=== PATIENT | male | born 1940 ===

== ENCOUNTER 2019-05-07 22:40 | Inpatient (IN) | payer MEDICARE, OTHER ==
[~2019-05-07] VITALS: Ht 188 cm; Wt 83.9 kg
[2019-05-07] MEDS ORDERED: ZOLPIDEM TARTRATE 5 MG TABLET PO PRN (23:30)
[2019-05-07] MEDS ORDERED: MAG HYDROX/AL HYDROX/SIMETH 30 ML UDC PO PRN (23:30)
[2019-05-07] MEDS ORDERED: MAGNESIUM HYDROXIDE 30 ML UDC PO PRN (23:30)
[2019-05-07] MEDS ORDERED: BLOOD SUGAR DIAGNOSTIC 1 EACH STRIP IN ONE (23:45)
[2019-05-07] MEDS ORDERED: PANT40TA2 PO (23:48)
[2019-05-07] MEDS ORDERED: TRAZ-182 PO (23:49)
[2019-05-07] MEDS ORDERED: MIRT15TA7 PO (23:49)
[2019-05-07] MEDS ORDERED: CITA20TA16 PO (23:50)
[2019-05-07] MEDS ORDERED: CLON0.2T PO (23:51)
[2019-05-07] MEDS ORDERED: ZOLP10TA2 PO (23:52)
[2019-05-07] MEDS ORDERED: LINA145C PO (23:52)
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
[2019-05-07] MEDS ORDERED: AMLO5TAB9 PO (23:53)
[2019-05-07] MEDS ORDERED: HYDR-4077 PO (23:54)
[2019-05-07] MEDS ORDERED: GLIP5TAB13 PO (23:54)
[2019-05-08] MEDS ORDERED: hydrALAZINE HCL 50 MG TABLET PO ONE (01:00)
--- NOTE | 2019-05-08 02:00 | NUR ---
GPS RN NOTES: PT STATED " I CANT SLEEP. I WANT A SLEEPING PILL." OFFERED AMBIEN 5MG PO PRN ORDERED. ADMINISTERED MEDICATION. PT TOLERATED MEDICATION WELL. CONTINUE TO MONITOR.
[2019-05-08 02:10] VITALS: BP 151/71
[2019-05-08 07:05] LABS: BASOPHILS % (AUTO) 0.9 % (0.0-2.0); EOSINOPHILS % (AUTO) 3.5 % (0.0-6.0); HEMATOCRIT 33 % (39-51); HEMOGLOBIN 10.5 g/dL (13.5-17.5); LYMPHOCYTES # (AUTO) 1.8 /CMM (0.8-4.8); LYMPHOCYTES % (AUTO) 32.5 % (20.0-44.0); MEAN CORPUSCULAR HGB CONC 32 g/dl (31.0-36.0); MEAN CORPUSCULAR VOLUME 74 fL (80-96); MONOCYTES # (AUTO) 0.5 /CMM (0.1-1.30); NEUTROPHILS # (AUTO) 2.9 /CMM (1.8-8.9); NEUTROPHILS % (AUTO) 53.1 % (43.0-81.0); PLATELET COUNT (AUTO) 209 /CMM (150-450); RED BLOOD CELL COUNT(AUTO) 4.51 MIL/uL (4.5-6.0); WHITE BLOOD COUNT (AUTO) 5.4 K/uL (4.3-11.0)
[2019-05-08 08:00] VITALS: BP 165/85
[2019-05-08 08:00] LABS: CALCIUM, SERUM 9.1 mg/dL (8.5-10.1); CARBON DIOXIDE 21 mmol/L (21-32); CHLORIDE 105 mmol/L (98-107); CREATININE 1.9 mg/dL (0.6-1.3); GLUCOSE 106 mg/dL (74-106); POTASSIUM 3.8 mmol/L (3.5-5.1); SODIUM SERUM 139 mmol/L (136-145); UREA NITROGEN, BLOOD 31 mg/dL (7-18)
[2019-05-08 08:13] LABS: CHOLESTEROL 167 mg/dL (<200); HDL CHOLESTEROL 34 mg/dL (40-60); LDL 97 mg/dL (0-99); TRIGLYCERIDES 177 mg/dL (30-150)
[2019-05-08 08:45] LABS: EOSINOPHILS % (MANUAL) 3 % (0-4); LYMPHOCYTES % (MANUAL) 42 % (16-48); MONOCYTES % (MANUAL) 8 % (0-11.0); NEUTROPHILS % (MANUAL) 47 (42-76)
[2019-05-08] MEDS ORDERED: CLONIDINE HCL 0.2 MG TABLET PO SCH (09:00)
[2019-05-08] MEDS ORDERED: Linaclotide (Linzess) 145 MCG PO SCH (09:00)
[2019-05-08] MEDS: PANTOPRAZOLE 40 MG TABLET.DR PO SCH (09:42)
[2019-05-08] MEDS: AMLODIPINE BESYLATE 5 MG TABLET PO SCH ×2 (09:42→16:19)
[2019-05-08] MEDS: hydrALAZINE HCL 50 MG TABLET PO SCH ×2 (09:42→16:19)
[2019-05-08] MEDS: glipiZIDE 5 MG TABLET PO SCH (09:43)
[2019-05-08] MEDS: CLONIDINE HCL 0.1 MG TABLET PO SCH ×2 (09:43→16:19)
--- NOTE | 2019-05-08 10:33 | NUR ---
Call to [facility]. No answer. Unable to leave message as voicemail not set up. Request was pending from pharmacy for linzess tablet for patient daily medication. Oumar Lou RN
--- NOTE | 2019-05-08 12:55 | NUR ---
CALLED AND LEFT A MESSAGE TO DR. PELAEZ FOR THE CONSULT.
[2019-05-08] MEDS ORDERED: DEXTROSE 50%-WATER 50 ML DISP.SYRIN IV PRN (14:30)
[2019-05-08 15:28] LABS: IRON, SERUM 34 ug/dl (50-175); TOTAL IRON BINDING CAPACITY 322 ug/dl (250-450)
[2019-05-08 16:00] VITALS: BP 117/65
[2019-05-08] MEDS: BLOOD SUGAR DIAGNOSTIC 1 EACH STRIP IN SCH ×2 (16:37→22:07)
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
[2019-05-08] MEDS: LORAZEPAM 1 MG TABLET PO PRN (19:49)
--- NOTE | 2019-05-08 19:49 | NUR ---
GPS/RN NOTE: PATIENT IS LABILE, ANXIOUS, REQUESTING FOR SLEEPING PILL AT THIS TIME, SAID THAT HE TAKES SLEEPING PILL EARLY AT NIGHT. ATIVAN 1 MG TAB PO GIVEN
[2019-05-08 20:16] VITALS: BP 121/76
[2019-05-08] MEDS: QUETIAPINE FUMARATE 25 MG TABLET PO SCH (21:33)
--- NOTE | 2019-05-08 22:07 | NUR ---
GPS/RN NOTE: ACCUCHECK 101 MG/DL, MILK 240 ML GIVEN PER REQUEST A SNACK
--- NOTE | 2019-05-09 07:09 | NUR ---
GPS/RN NOTE: SLEPT WELL, NO ACUTE DISTRESS NOTED.CALM AND QUIET THIS MORNING. DENIES ANY PAIN. WILL CONTINUE TO MONITOR TO MAINTAIN SAFETY.
[2019-05-09] MEDS: BLOOD SUGAR DIAGNOSTIC 1 EACH STRIP IN SCH ×4 (07:50→21:56)
[2019-05-09 08:00] VITALS: BP 142/88
[2019-05-09] MEDS: PANTOPRAZOLE 40 MG TABLET.DR PO SCH (09:03)
[2019-05-09] MEDS: glipiZIDE 5 MG TABLET PO SCH (09:03)
[2019-05-09] MEDS: CITALOPRAM HYDROBROMIDE 20 MG TABLET PO SCH (09:03)
[2019-05-09] MEDS: AMLODIPINE BESYLATE 5 MG TABLET PO SCH ×2 (09:03→16:53)
[2019-05-09] MEDS: CLONIDINE HCL 0.1 MG TABLET PO SCH ×2 (09:03→16:53)
[2019-05-09] MEDS: hydrALAZINE HCL 50 MG TABLET PO SCH ×2 (09:04→16:53)
--- NOTE | 2019-05-09 09:25 | NUR ---
Call to Granddaughter regarding Linzess prescription for pharmacy to verify and dose through patient's own medication. Phone rings until it answers and hangs up. Oumar Lou RN
--- NOTE | 2019-05-09 13:29 | NUR ---
Patient given assist with shaving. Performs his own perineal care. Assist with change of linen. Patient notes he wishes he was . Says, "everyone here seems to think its funny and does not believe in God. I believe in God because I am old. You will see. This place is torture." Patient had one incontinent espisode. Given a diaper, new gown, and will offer frequent toilet breaks. Oumar Lou RN
[2019-05-09 16:00] VITALS: BP 143/81
--- NOTE | 2019-05-09 18:14 | NUR ---
Patient maintains feeling extremely depressed per his report. Eats his ensure and juice with milk each meal. Says that is all he needs. Encouragement to patient to come to day room. Patient refuses group therapy at this time. Will endorse to night [facility]. Oumar Lou RN
[2019-05-09 20:11] VITALS: BP 119/59
[2019-05-09] MEDS: QUETIAPINE FUMARATE 25 MG TABLET PO SCH (21:56)
[2019-05-09] MEDS: LORAZEPAM 1 MG TABLET PO PRN (23:31)
[2019-05-10] MEDS: BLOOD SUGAR DIAGNOSTIC 1 EACH STRIP IN SCH ×4 (07:32→21:50)
[2019-05-10 08:00] VITALS: BP 159/69
[2019-05-10] MEDS: PANTOPRAZOLE 40 MG TABLET.DR PO SCH (08:41)
[2019-05-10] MEDS: CITALOPRAM HYDROBROMIDE 20 MG TABLET PO SCH (08:41)
[2019-05-10] MEDS: glipiZIDE 5 MG TABLET PO SCH (08:41)
[2019-05-10] MEDS: hydrALAZINE HCL 50 MG TABLET PO SCH ×2 (08:42→16:23)
[2019-05-10] MEDS: AMLODIPINE BESYLATE 5 MG TABLET PO SCH ×2 (08:43→16:23)
[2019-05-10] MEDS: CLONIDINE HCL 0.1 MG TABLET PO SCH ×2 (08:45→16:22)
[2019-05-10] MEDS: IBUPROFEN 400 MG TABLET PO PRN (12:02)
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
--- NOTE | 2019-05-10 13:46 | NUR ---
Initial Discharge Plan: Pt currently resides at his home with his granddaughter, Malou ([phone]), located at [address] [place] [address]; ([phone]). Per pt, he would like to return to his home. Per pts granddaughter, she would like the pt to be discharged to an Assisted Living. SW will work with the pt and the MD regarding appropriate discharge planning. SW will form a safe and proper discharge.
--- NOTE | 2019-05-10 14:58 | NUR ---
Placement Referral: KAT faxed a referral to [facility] with attention to Fei to the fax number: [phone].
--- NOTE | 2019-05-10 15:58 | NUR ---
SS Group Note 05/10/19: SW went to patient's room to invite patient to attend today's support group at 2:00pm regarding recognizing positive aspects in their life. Patient presented laying on her bed sleeping. SW attempted to wake pt. However, pt. was not easily roused. SW will invite pt. to attend next SS Group.
[2019-05-10 16:00] VITALS: BP 129/64
[2019-05-10] MEDS: INSULIN REGULAR, HUMAN 100 UNIT/ML 3 ML VIAL SQ PRN (16:46)
[2019-05-10 20:59] VITALS: BP 122/67
[2019-05-10] MEDS: QUETIAPINE FUMARATE 25 MG TABLET PO SCH (21:30)
[2019-05-10] MEDS: LORAZEPAM 1 MG TABLET PO PRN (22:03)
[2019-05-11] MEDS: IBUPROFEN 400 MG TABLET PO PRN (02:43)
[2019-05-11 06:56] LABS: BASOPHILS # (AUTO) 0.1 /CMM (0.0-0.2); BASOPHILS % (AUTO) 0.9 % (0.0-2.0); EOSINOPHILS % (AUTO) 2.8 % (0.0-6.0); HEMATOCRIT 32 % (39-51); HEMOGLOBIN 10.3 g/dL (13.5-17.5); LYMPHOCYTES # (AUTO) 1.5 /CMM (0.8-4.8); LYMPHOCYTES % (AUTO) 24.3 % (20.0-44.0); MEAN CORPUSCULAR HGB CONC 32 g/dl (31.0-36.0); MEAN CORPUSCULAR VOLUME 74 fL (80-96); MONOCYTES # (AUTO) 0.5 /CMM (0.1-1.30); MONOCYTES % (AUTO) 7.6 % (2.0-12.0); NEUTROPHILS % (AUTO) 64.4 % (43.0-81.0); PLATELET COUNT (AUTO) 189 /CMM (150-450); RED BLOOD CELL COUNT(AUTO) 4.32 MIL/uL (4.5-6.0); WHITE BLOOD COUNT (AUTO) 6.2 K/uL (4.3-11.0)
[2019-05-11 07:18] LABS: ALANINE AMINOTRANSFERASE 13 U/L (12-78); ALBUMIN 3.1 g/dL (3.4-5.0); ALKALINE PHOSPHATASE 98 U/L (46-116); ASPARTATE AMINOTRANSFERASE 10 U/L (15-37); BILIRUBIN,TOTAL 0.3 mg/dL (0.2-1.0); CALCIUM, SERUM 8.7 mg/dL (8.5-10.1); CARBON DIOXIDE 23 mmol/L (21-32); CHLORIDE 105 mmol/L (98-107); CREATINE KINASE, TOTAL 55 U/L (39-308); CREATININE 2.1 mg/dL (0.6-1.3); GLUCOSE 97 mg/dL (74-106); MAGNESIUM 2.2 mg/dL (1.8-2.4); PHOSPHORUS 3.4 mg/dL (2.5-4.9); POTASSIUM 3.9 mmol/L (3.5-5.1); SODIUM SERUM 138 mmol/L (136-145); TOTAL PROTEIN, SERUM 7.9 g/dL (6.4-8.2); UREA NITROGEN, BLOOD 37 mg/dL (7-18)
[2019-05-11 08:00] VITALS: BP 141/63
[2019-05-11] MEDS: BLOOD SUGAR DIAGNOSTIC 1 EACH STRIP IN SCH ×4 (08:17→22:29)
[2019-05-11] MEDS: CLONIDINE HCL 0.1 MG TABLET PO SCH ×2 (08:39→16:31)
[2019-05-11] MEDS: hydrALAZINE HCL 50 MG TABLET PO SCH ×2 (08:39→16:31)
[2019-05-11] MEDS: PANTOPRAZOLE 40 MG TABLET.DR PO SCH (08:39)
[2019-05-11] MEDS: glipiZIDE 5 MG TABLET PO SCH (08:39)
[2019-05-11] MEDS: CITALOPRAM HYDROBROMIDE 20 MG TABLET PO SCH (08:39)
[2019-05-11] MEDS: AMLODIPINE BESYLATE 5 MG TABLET PO SCH ×2 (08:41→16:31)
--- NOTE | 2019-05-11 14:03 | NUR ---
SNF Referral: KAT faxed a referral to [facility] with attn to Mimi to the fax number: [phone].
[2019-05-11 16:00] VITALS: BP 135/73
[2019-05-11 20:55] VITALS: BP 129/61
[2019-05-11] MEDS: QUETIAPINE FUMARATE 25 MG TABLET PO SCH (22:25)
[2019-05-12] MEDS: IBUPROFEN 400 MG TABLET PO PRN ×2 (00:26→23:38)
[2019-05-12] MEDS: LORAZEPAM 1 MG TABLET PO PRN ×2 (00:27→23:38)
[2019-05-12] MEDS: BLOOD SUGAR DIAGNOSTIC 1 EACH STRIP IN SCH ×4 (07:42→21:24)
[2019-05-12 08:00] VITALS: BP 134/69
[2019-05-12] MEDS: glipiZIDE 5 MG TABLET PO SCH (08:53)
[2019-05-12] MEDS: CLONIDINE HCL 0.1 MG TABLET PO SCH ×2 (08:54→16:29)
[2019-05-12] MEDS: hydrALAZINE HCL 50 MG TABLET PO SCH ×2 (08:54→16:29)
[2019-05-12] MEDS: CITALOPRAM HYDROBROMIDE 20 MG TABLET PO SCH (08:54)
[2019-05-12] MEDS: PANTOPRAZOLE 40 MG TABLET.DR PO SCH (08:54)
[2019-05-12] MEDS: AMLODIPINE BESYLATE 5 MG TABLET PO SCH ×2 (09:28→17:56)
[2019-05-12 10:06] LABS: *SPE A/G RATIO 0.7 (0.7-1.7); *SPE ALPHA-1-GLOBULIN 0.3 g/dL (0.0-0.4); *SPE BETA GLOBULIN 1.5 g/dL (0.7-1.3); *SPE GLOBULIN, TOTAL 4.1 g/dL (2.2-3.9); *SPE M-SPIKE Not Observed g/dL (Not Observed); *SPEGAMMA GLOBULIN 1.3 g/dL (0.4-1.8)
--- NOTE | 2019-05-12 10:25 | NUR ---
SNF Contact: Mimi ([phone]) from [facility] stated that she will come assess the pt on Friday regarding the referral.
[2019-05-12 11:07] LABS: PTH, INTACT 65 pg/mL (15-65)
[2019-05-12] MEDS: INSULIN REGULAR, HUMAN 100 UNIT/ML 3 ML VIAL SQ PRN (12:16)
--- NOTE | 2019-05-12 12:17 | NUR ---
GPS RN NOTE: PATIENT BLOOD GLUCOSE 140. INSULIN NOT ADMINISTERED BECAUSE PATIENT IS REFUSING TO EAT MEALS. WILL CONTINUE TO MONITOR PATIENT AND BLOOD SUGAR.
[2019-05-12 16:00] VITALS: BP 134/64
[2019-05-12] MEDS: ENSURE ENLIVE 237 ML LIQUID (VANILLA) PO SCH (17:00)
--- NOTE | 2019-05-12 19:15 | NUR ---
GPS RN NOTES RECEIVED LAYING COMFORTABLY ON BED A/0 X3-4.BREATHING NON LABORED,ABLE TO VERBALIZED NEEDS,MED COMPLIANT,CALIMED HE WANTS SLEEPING LATER OM BUT NO ORDER,OTHERWISE ON SEROQUEL TONIGHT.WILL CONTINUE TO MONITOR BEHAVIOR.MONITOR BEHAVIOR Q 15 MINUTES AND MANAGE ACCORDINGLY.
[2019-05-12 20:23] VITALS: BP 137/75
[2019-05-12] MEDS: QUETIAPINE FUMARATE 25 MG TABLET PO SCH (21:24)
--- NOTE | 2019-05-12 21:24 | NUR ---
GPS RN NOTES ACCU-CHECK BLOOD SUGAR CHECK 130,NO INSULIN COVERAGE.
[2019-05-12 21:33] VITALS: BP 137/73
--- NOTE | 2019-05-12 23:38 | NUR ---
GPS RN NOTES C/O PAIN ON RIGHT HAND 3/10 ON PAIN SCALE.MEDICATED WITH MOTRIN 400MG 1TAB PO ORDERED,ALONG WITH ATIVAN 1MG PO FOR ANXIETY ORDERED.
[2019-05-13] MEDS: BLOOD SUGAR DIAGNOSTIC 1 EACH STRIP IN SCH ×4 (07:27→21:33)
[2019-05-13 08:00] VITALS: BP 138/64
[2019-05-13] MEDS: glipiZIDE 5 MG TABLET PO SCH (08:19)
[2019-05-13] MEDS: PANTOPRAZOLE 40 MG TABLET.DR PO SCH (08:19)
[2019-05-13] MEDS: CLONIDINE HCL 0.1 MG TABLET PO SCH ×2 (08:19→16:30)
[2019-05-13] MEDS: hydrALAZINE HCL 50 MG TABLET PO SCH ×2 (08:19→16:30)
[2019-05-13] MEDS: CITALOPRAM HYDROBROMIDE 20 MG TABLET PO SCH (08:19)
[2019-05-13] MEDS: ENSURE ENLIVE 237 ML LIQUID (VANILLA) PO SCH ×3 (08:20→16:30)
[2019-05-13] MEDS: AMLODIPINE BESYLATE 5 MG TABLET PO SCH ×2 (09:14→16:31)
[2019-05-13 16:00] VITALS: BP 130/60
--- NOTE | 2019-05-13 19:19 | NUR ---
GPS/RN NOTE: UP ON WHEELCHAIR, CHEERFUL WITH A SMILE, A/O X3, DENIES SI/HI. FALL PRECAUTION OBSERVED. TAKES MEDICATIONS. WILL CONTINUE TO MONITOR Q 15 MINS. FOR SAFETY AND BEHAVIOR. BED ALARM ON.CALM, COOPERATIVE, QUIET. PLEASAMNT AND APPROPRIATE.
[2019-05-13 19:44] LABS: APPEARANCE,URINE CLEAR (CLEAR); BILIRUBIN,URINE NEGATIVE (NEGATIVE); BLOOD, URINE NEGATIVE Ery/uL (NEGATIVE); COLOR,URINE YELLOW (YELLOW); KETONES,URINE NEGATIVE (NEGATIVE); LEUKOCYTE ESTERASE ,URINE NEGATIVE (NEGATIVE); NITRITE, URINE NEGATIVE (NEGATIVE); PH,URINE 6.5 (5.0-8.0); PROTEIN,URINE TRACE mg/dl (NEGATIVE); UGLUCOSE NEGATIVE (NEGATIVE); UROBILINOGEN,URINE 0.2 EU/dL (0.2)
[2019-05-13 20:34] VITALS: BP 139/47
[2019-05-13 21:04] LABS: EOSINOPHIL,URINE None Seen
[2019-05-13 23:04] VITALS: BP 151/71
[2019-05-13] MEDS: QUETIAPINE FUMARATE 25 MG TABLET PO SCH (23:20)
--- NOTE | 2019-05-13 23:21 | NUR ---
GPS/RN NOTE: AT 2133 ACCUCHECK WAS 57 MG/DL, ORANGE JUICE 250 ML WITH 3 SUGAR AND TUNA SANDWICH. AT 2304 ACCUCHECK WAS 90 MG/DL. VITALS BP 151/71, PULSE 69.
[2019-05-13] MEDS: LORAZEPAM 1 MG TABLET PO PRN (23:24)
--- NOTE | 2019-05-13 23:24 | NUR ---
GPS/RN NOTE: C/O INSOMNIA, REQUESTING FOR SLEEPING PILL, ATIVAN 1 MG TAB PO GIVEN. BP 151/71, PULSE 69.
--- NOTE | 2019-05-13 23:25 | NUR ---
GPS/RN NOTE: C/O GEN. BODY PAIN, IBUPROFEN 400 MG TAB PO GIVEN.
[2019-05-14 06:48] LABS: BASOPHILS # (AUTO) 0.1 /CMM (0.0-0.2); EOSINOPHILS % (AUTO) 3.4 % (0.0-6.0); HEMATOCRIT 33 % (39-51); HEMOGLOBIN 10.3 g/dL (13.5-17.5); LYMPHOCYTES # (AUTO) 1.6 /CMM (0.8-4.8); LYMPHOCYTES % (AUTO) 25.7 % (20.0-44.0); MEAN CORPUSCULAR HGB CONC 31 g/dl (31.0-36.0); MEAN CORPUSCULAR VOLUME 74 fL (80-96); MONOCYTES # (AUTO) 0.5 /CMM (0.1-1.30); MONOCYTES % (AUTO) 7.2 % (2.0-12.0); NEUTROPHILS # (AUTO) 3.9 /CMM (1.8-8.9); NEUTROPHILS % (AUTO) 62.7 % (43.0-81.0); PLATELET COUNT (AUTO) 209 /CMM (150-450); RED BLOOD CELL COUNT(AUTO) 4.49 MIL/uL (4.5-6.0); WHITE BLOOD COUNT (AUTO) 6.3 K/uL (4.3-11.0)
[2019-05-14 06:51] LABS: ALANINE AMINOTRANSFERASE 16 U/L (12-78); ALKALINE PHOSPHATASE 95 U/L (46-116); ASPARTATE AMINOTRANSFERASE 14 U/L (15-37); BILIRUBIN,TOTAL 0.3 mg/dL (0.2-1.0); CALCIUM, SERUM 9.3 mg/dL (8.5-10.1); CARBON DIOXIDE 22 mmol/L (21-32); CHLORIDE 108 mmol/L (98-107); CREATININE 1.9 mg/dL (0.6-1.3); GLUCOSE 104 mg/dL (74-106); MAGNESIUM 2.3 mg/dL (1.8-2.4); PHOSPHORUS 3.5 mg/dL (2.5-4.9); POTASSIUM 4.1 mmol/L (3.5-5.1); SODIUM SERUM 142 mmol/L (136-145); TOTAL PROTEIN, SERUM 8.1 g/dL (6.4-8.2); UREA NITROGEN, BLOOD 35 mg/dL (7-18)
[2019-05-14] MEDS: BLOOD SUGAR DIAGNOSTIC 1 EACH STRIP IN SCH ×4 (07:16→21:32)
--- NOTE | 2019-05-14 07:30 | NUR ---
OPENING RECEIVED LAYING COMFORTABLY ON BED A/0 X3-4.BREATHING NON LABORED,ABLE TO VERBALIZED FEELING OKAY. PT CALM AND COOPERATIVE POCT BLOOD SUGAR DONE RESULT= 103 NO COVERAGE. WILL CONTINUE TO MONITOR BEHAVIOR.MONITOR BEHAVIOR Q 15 MINUTES AND MANAGE ACCORDINGLY.
[2019-05-14] MEDS: INSULIN REGULAR, HUMAN 100 UNIT/ML 3 ML VIAL SQ PRN ×3 (07:34→17:46)
[2019-05-14 08:00] VITALS: BP 157/73
[2019-05-14] MEDS: CLONIDINE HCL 0.1 MG TABLET PO SCH ×2 (08:35→17:40)
[2019-05-14] MEDS: PANTOPRAZOLE 40 MG TABLET.DR PO SCH (08:35)
[2019-05-14] MEDS: hydrALAZINE HCL 50 MG TABLET PO SCH ×2 (08:35→17:39)
[2019-05-14] MEDS: glipiZIDE 5 MG TABLET PO SCH (08:36)
[2019-05-14] MEDS: CITALOPRAM HYDROBROMIDE 20 MG TABLET PO SCH (08:36)
[2019-05-14] MEDS: AMLODIPINE BESYLATE 5 MG TABLET PO SCH ×2 (08:36→17:40)
[2019-05-14] MEDS: ENSURE ENLIVE 237 ML LIQUID (VANILLA) PO SCH ×3 (08:37→17:47)
--- NOTE | 2019-05-14 13:49 | NUR ---
accu check done at 12 noo 65 given meal tray recheck 113
[2019-05-14 16:00] VITALS: BP 128/67
--- NOTE | 2019-05-14 17:52 | NUR ---
CLOSING PT COOPERATIVE ALL SHIFT KEEP SAFE ALL MEDICATIONS GIVEN WILL GIVE REPORT TO PM SHIFT RN FOR CONTINUITY OF CARE
[2019-05-14 19:02] LABS: CREATININE, URINE 139.9 MG/DL (30.0-125.0); URINE TOTAL PROTEIN 35.6 mg/dL (0-11.9)
[2019-05-14 20:17] VITALS: BP 130/63
--- NOTE | 2019-05-14 20:26 | NUR ---
GPS/RN NOTE: AWAKE, ALERT, ORIENTED X3, DEPRESSED, INTERACTS WHEN ENGAGED. CALM, COOPERATIE, TAKES HIS MEDICATIONS. NO APPARENT DISTRESS NOTED. WILL CONTINUE TO MONITOR.
[2019-05-14] MEDS: QUETIAPINE FUMARATE 25 MG TABLET PO SCH (21:10)
[2019-05-14] MEDS: IBUPROFEN 400 MG TABLET PO PRN (21:31)
--- NOTE | 2019-05-14 21:31 | NUR ---
GPS/RN NOTE: C/O PAIN RIGHT HAND, IBUPROFEN 400 MG TAB PO GIVEN.
--- NOTE | 2019-05-14 21:32 | NUR ---
GPS/RN NOTE: ACCUCHECK 140 MG/DL, REFUSED INSULIN SLIDING SCALE COVERAGE. STATED, " NO" HS SNACKS GIVEN, SANDWICH AND 120 ML JUICE.
[2019-05-14] MEDS: LORAZEPAM 1 MG TABLET PO PRN (21:36)
--- NOTE | 2019-05-14 21:36 | NUR ---
GPS/RN NOTE: ANXIOUS, REQUESTING FOR SLEEPING PILL, ATIVAN 1 MG TAB PO GIVEN.
--- NOTE | 2019-05-15 07:03 | NUR ---
GPS/RN END OF SHIFT NOTE: PATIENT SLEPT FOR 9 HOURS DURING THE NIGHT, MED COMPLIANT, COOPERATIVE. NO ACUTE DISTRESS NOTED. WILL CONTINUE TO MONITOR.
[2019-05-15] MEDS: BLOOD SUGAR DIAGNOSTIC 1 EACH STRIP IN SCH ×4 (07:42→21:47)
[2019-05-15] MEDS: INSULIN REGULAR, HUMAN 100 UNIT/ML 3 ML VIAL SQ PRN ×4 (07:42→21:48)
[2019-05-15 08:00] VITALS: BP 147/86
--- NOTE | 2019-05-15 08:48 | NUR ---
OPENING RECEIVED LAYING COMFORTABLY ON BED A/0 X3-4.BREATHING NON LABORED,ABLE TO VERBALIZED FEELING OKAY. PT CALM AND COOPERATIVE POCT BLOOD SUGAR DONE RESULT= 103 NO COVERAGE. WILL CONTINUE TO MONITOR BEHAVIOR.MONITOR BEHAVIOR Q 15 MINUTES AND MANAGE ACCORDINGLY. POCT GLUCOSE DONE. 98
[2019-05-15] MEDS: CLONIDINE HCL 0.1 MG TABLET PO SCH ×2 (09:35→16:53)
[2019-05-15] MEDS: hydrALAZINE HCL 50 MG TABLET PO SCH ×2 (09:35→16:53)
[2019-05-15] MEDS: CITALOPRAM HYDROBROMIDE 20 MG TABLET PO SCH (09:36)
[2019-05-15] MEDS: PANTOPRAZOLE 40 MG TABLET.DR PO SCH (09:36)
[2019-05-15] MEDS: AMLODIPINE BESYLATE 5 MG TABLET PO SCH ×2 (09:36→16:53)
[2019-05-15] MEDS: glipiZIDE 5 MG TABLET PO SCH (09:36)
[2019-05-15] MEDS: ENSURE ENLIVE 237 ML LIQUID (VANILLA) PO SCH ×3 (09:37→16:54)
[2019-05-15 16:00] VITALS: BP 130/63
[2019-05-15] MEDS: IBUPROFEN 400 MG TABLET PO PRN (17:02)
--- NOTE | 2019-05-15 17:38 | NUR ---
CLOSING PT COOPERATIVE ALL SHIFT KEEP SAFE ALL MEDICATIONS GIVEN WILL GIVE REPORT TO PM SHIFT RN FOR CONTINUITY OF CARE CALLED [facility] SPOKE WITH KATHLEEN MONTALVO CONCERNING PAIN AND SWELLING TO PT RIGHT HAND. SENDING PHOTO TO SELVIN CELL PHONE
--- NOTE | 2019-05-15 17:43 | NUR ---
CLOSING WILL ENDORSE CARE TO PM SHIFT RN FOR CONTINUITY OF CARE
--- NOTE | 2019-05-15 18:03 | NUR ---
photo of right hand taken and placed in chart pt has a history of gout managed by [facility]
[2019-05-15] MEDS ORDERED: COLCHICINE 0.6 MG TABLET PO SCH (19:00)
[2019-05-15 20:26] VITALS: BP 118/58
[2019-05-15] MEDS: QUETIAPINE FUMARATE 25 MG TABLET PO SCH (21:43)
[2019-05-15] MEDS: LORAZEPAM 1 MG TABLET PO PRN (22:53)
[2019-05-16 07:01] LABS: CALCIUM, SERUM 9.1 mg/dL (8.5-10.1); CARBON DIOXIDE 20 mmol/L (21-32); CHLORIDE 105 mmol/L (98-107); GLUCOSE 94 mg/dL (74-106); MAGNESIUM 2.3 mg/dL (1.8-2.4); PHOSPHORUS 3.6 mg/dL (2.5-4.9); POTASSIUM 4.1 mmol/L (3.5-5.1); SODIUM SERUM 135 mmol/L (136-145); UREA NITROGEN, BLOOD 45 mg/dL (7-18)
[2019-05-16] MEDS: BLOOD SUGAR DIAGNOSTIC 1 EACH STRIP IN SCH ×4 (07:46→21:36)
[2019-05-16 08:00] VITALS: BP 154/92
[2019-05-16] MEDS: ENSURE ENLIVE 237 ML LIQUID (VANILLA) PO SCH ×3 (09:00→17:41)
[2019-05-16] MEDS: CLONIDINE HCL 0.1 MG TABLET PO SCH ×2 (09:32→16:19)
[2019-05-16] MEDS: CITALOPRAM HYDROBROMIDE 20 MG TABLET PO SCH (09:33)
[2019-05-16] MEDS: hydrALAZINE HCL 50 MG TABLET PO SCH ×2 (09:33→16:19)
[2019-05-16] MEDS: PANTOPRAZOLE 40 MG TABLET.DR PO SCH (09:33)
[2019-05-16] MEDS: glipiZIDE 5 MG TABLET PO SCH (09:34)
[2019-05-16] MEDS: AMLODIPINE BESYLATE 5 MG TABLET PO SCH ×2 (09:34→16:21)
[2019-05-16 16:00] VITALS: BP 130/60
[2019-05-16] MEDS: COLCHICINE 0.6 MG TABLET PO SCH (16:18)
[2019-05-16 18:00] LABS: BASOPHILS % (AUTO) 0.1 % (0.0-2.0); EOSINOPHILS % (AUTO) 5.1 % (0.0-6.0); HEMATOCRIT 31 % (39-51); HEMOGLOBIN 9.8 g/dL (13.5-17.5); LYMPHOCYTES # (AUTO) 1.7 /CMM (0.8-4.8); LYMPHOCYTES % (AUTO) 30.3 % (20.0-44.0); MEAN CORPUSCULAR HGB CONC 31 g/dl (31.0-36.0); MEAN CORPUSCULAR VOLUME 74 fL (80-96); MONOCYTES # (AUTO) 0.2 /CMM (0.1-1.30); MONOCYTES % (AUTO) 3.2 % (2.0-12.0); NEUTROPHILS # (AUTO) 3.4 /CMM (1.8-8.9); NEUTROPHILS % (AUTO) 61.3 % (43.0-81.0); PLATELET COUNT (AUTO) 211 /CMM (150-450); RED BLOOD CELL COUNT(AUTO) 4.22 MIL/uL (4.5-6.0); WHITE BLOOD COUNT (AUTO) 5.6 K/uL (4.3-11.0)
[2019-05-16 20:13] VITALS: BP 125/69
[2019-05-16 20:35] LABS: EOSINOPHILS % (MANUAL) 7 % (0-4); LYMPHOCYTES % (MANUAL) 30 % (16-48); MONOCYTES % (MANUAL) 7 % (0-11.0); NEUTROPHILS % (MANUAL) 55 (42-76); REACTIVE LYMPHOCYTES 1 % (0-0)
[2019-05-16] MEDS: QUETIAPINE FUMARATE 25 MG TABLET PO SCH (21:31)
[2019-05-16] MEDS: LORAZEPAM 1 MG TABLET PO PRN (21:32)
[2019-05-16] MEDS: INSULIN REGULAR, HUMAN 100 UNIT/ML 3 ML VIAL SQ PRN (21:42)
[2019-05-17] MEDS: BLOOD SUGAR DIAGNOSTIC 1 EACH STRIP IN SCH ×2 (07:46→12:29)
[2019-05-17 08:00] VITALS: BP 147/69
[2019-05-17] MEDS: CITALOPRAM HYDROBROMIDE 20 MG TABLET PO SCH (08:59)
[2019-05-17] MEDS: CLONIDINE HCL 0.1 MG TABLET PO SCH (08:59)
[2019-05-17] MEDS: glipiZIDE 5 MG TABLET PO SCH (08:59)
[2019-05-17] MEDS: COLCHICINE 0.6 MG TABLET PO SCH (08:59)
[2019-05-17] MEDS: PANTOPRAZOLE 40 MG TABLET.DR PO SCH (08:59)
[2019-05-17] MEDS: AMLODIPINE BESYLATE 5 MG TABLET PO SCH (08:59)
[2019-05-17 09:03] VITALS: BP 147/69
[2019-05-17] MEDS: hydrALAZINE HCL 50 MG TABLET PO SCH (09:03)
[2019-05-17] MEDS: ENSURE ENLIVE 237 ML LIQUID (VANILLA) PO SCH (09:09)
--- NOTE | 2019-05-17 09:22 | NUR ---
Family Contact: SW called the pts granddaughter, Malou ([phone]), and was unable to leave a message on her voicemail because her voicemail has not been set up.
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
--- NOTE | 2019-05-17 13:40 | NUR ---
Discharge Note: Pt was discharged home to [address] [address]; ([phone]). Pts granddaughter, Malou ([phone]), picked him up at 12pm. Upon discharge, the pt appeared to be in a euthymic mood and presented with a calm affect. Pt denied both suicidal and homicidal ideation as well as auditory and visual hallucinations. Pt will be under the care of his psychiatrist, Dr. Dayanna Patiño, located at [address] [address]; ; and a fax of records was sent to: [phone]. Pt will be under the care of his padded box sewer, Dr. Joyce Daniels, located at [address] [facility] [address], [place] [address]; .
--- NOTE | 2019-05-17 14:42 | NUR ---
GPS RN NOTE 79 YEAR OLD MALE DISCHARGED TO HOME IN STABLE CONDITION. COMPLIANT WITH MEDICATIONS, COOPERATIVE WITH TREATMENT PLANS. PATIENT DENIES SI/HI AND VAH. PATIENT INSTRUCTED TO GO TO THE CLOSEST ER IF DEVELOPING SI/HI. BEHAVIOR IMPROVED, PSYCHIATRIC TREATMENT PLANS MET, MEDICAL TREATMENT PLANS DEFERRED FOR CONTINUAL MONITORING. EDUCATED PATIENT ABOUT AFTER CARE PLAN (EXIT-CARE) AND COPY PROVIDED. PERSONAL BELONGINGS RETURNED. SKIN CHECK DONE AND PHOTOS IN CHART. MEDICATIONS RECONCILED WITH DR. CARBAJAL AND DR. MONTALVO. PATIENT SIGNED DISCHARGE PAPERWORK AND VERBALLY STATED HE UNDERSTOOD HIS FOLLOW UP INSTRUCTIONS. PATIENT LEFT VIA PRIVATE CAR ACCOMPANIED BY GRANDDAUGHTER AT 1315.
== END 2019-05-17 13:15 | disposition home or self-care (01) | DRG 885 ==
LOC: GPS 22:47
PROVIDERS: ADMIT Psychiatry & Neurology Psychiatry
DX: F33.3 Major depressive disorder, recurrent, severe with psychotic symptoms (principal); N17.9 Acute kidney failure, unspecified; N18.4 Chronic kidney disease, stage 4 (severe); E11.65 Type 2 diabetes mellitus with hyperglycemia; D50.9 Iron deficiency anemia, unspecified; I12.9 Hypertensive chronic kidney disease with stage 1 through stage 4 chronic kidney disease, or unspecified chronic kidney disease; R45.850 Homicidal ideations; I25.10 Atherosclerotic heart disease of native coronary artery without angina pectoris; D63.8 Anemia in other chronic diseases classified elsewhere; M10.9 Gout, unspecified; E11.22 Type 2 diabetes mellitus with diabetic chronic kidney disease; Z59.0 Homelessness
CPT/HCPCS: 36415; 80048-TC; 80053-TC; 80061-TC; 81000-TC; 82550-TC; 82570-TC; 82962-TC; 83540-TC; 83735-TC; 83970; 84100-TC; 84155; 84155-TC; 84165; 84300-TC; 85025-TC; 87081-TC; J1815